=== PATIENT | male | born 1970 | race Two or more races ===

== ENCOUNTER 2023-04-16 23:37 | Emergency (ER) | payer MEDICAID ==
[2023-04-16 23:49] LABS: COVID AG,FIA SOURCE NASAL SWAB
[2023-04-17 00:10] LABS: SARS-COV2 (COVID) ANTIGEN,FIA Negative (Negative)
== END 2023-04-17 03:16 | disposition home or self-care (01) ==
LOC: EMS 23:38
DX: Z20.822 Contact with and (suspected) exposure to COVID-19 (principal)
CPT/HCPCS: 99283

== ENCOUNTER 2023-04-17 00:21 | Inpatient (IN) | payer MEDICAID ==
[~2023-04-17] VITALS: Ht 175.3 cm; Wt 73.5 kg
[2023-04-17] MEDS ORDERED: HALOPERIDOL 5 MG TABLET PO PRN (01:45)
[2023-04-17 03:44] VITALS: BP 137/71; PULSE 68; RESP 18; TEMP 97.7; O2SAT 100
[2023-04-17] MEDS ORDERED: NICOTINE 14 MG/24 HOUR PATCH TD PRN (06:45)
[2023-04-17] MEDS ORDERED: MAGNESIUM HYDROXIDE SUSPENSION 30 ML UDCUP PO PRN (06:45)
[2023-04-17] MEDS ORDERED: ONDANSETRON HCL 4 MG TABLET PO PRN (06:45)
[2023-04-17] MEDS ORDERED: LOPERAMIDE HCL 2 MG CAPSULE PO PRN (06:45)
[2023-04-17] MEDS ORDERED: GuaiFENesin/D-METHORPHAN [SUGAR-FREE] 200-20MG/10 ML SYRUP UDCUP PO PRN (06:45)
[2023-04-17] MEDS ORDERED: MAG HYDROX/AL HYDROX/SIMETH ES 30 ML SUSPENSION UDCUP PO PRN (06:45)
[2023-04-17] MEDS ORDERED: PETROLATUM,WHITE 28 GM JELLY TP PRN (06:45)
[2023-04-17] MEDS ORDERED: DOCUSATE SODIUM 100 MG CAPSULE PO PRN (06:45)
[2023-04-17] MEDS ORDERED: ACETAMINOPHEN 325 MG TABLET PO PRN (06:45)
[2023-04-17] MEDS ORDERED: CloNIDine HCL 0.1 MG TABLET PO PRN (06:45)
[2023-04-17] MEDS ORDERED: ALBUTEROL SULFATE HFA 90 MCG/PUFF 8 GM INHALER IH PRN (06:45)
[2023-04-17 08:27] VITALS: RESP 18
[2023-04-17 20:08] VITALS: BP 109/68; PULSE 66; RESP 18; TEMP 97.8; O2SAT 98
[2023-04-18 08:23] VITALS: BP 133/74; PULSE 60; RESP 17; TEMP 97.8; O2SAT 100
[2023-04-18 08:27] LABS: BASOPHILS % (AUTO) 1.1 % (0.0-2.0); EOSINOPHILS % (AUTO) 2.5 % (1.0-6.0); HEMATOCRIT 43.9 % (41-53); HEMOGLOBIN 14.9 g/dL (13.5-17.5); LYMPHOCYTES # (AUTO) 1.9 K/uL (1.0-4.8); LYMPHOCYTES % (AUTO) 29.5 % (22.0-44.0); MEAN CORPUSCULAR HEMOGLOBIN 31.3 pg (26.0-34.0); MEAN CORPUSCULAR HGB CONC 33.9 G/dL (31.0-37.0); MEAN CORPUSCULAR VOLUME 92 fL (80-100); MONOCYTES # (AUTO) 0.4 K/uL (0.1-1.0); MONOCYTES % (AUTO) 6.1 % (2.0-9.0); NEUTROPHILS # (AUTO) 3.8 K/uL (1.8-7.7); NEUTROPHILS % (AUTO) 60.8 % (40.0-70.0); PLATELET COUNT (AUTO) 254 K/uL (150-450); RED BLOOD CELL COUNT(AUTO) 4.76 MIL/uL (4.50-5.90); RED CELL DISTRIBUTION WIDTH 13.2 % (11.5-14.5); WHITE BLOOD COUNT (AUTO) 6.3 K/uL (4.5-11.0)
[2023-04-18 08:55] LABS: ALANINE AMINOTRANSFERASE 19 U/L (12-78); ALBUMIN 3.1 g/dL (3.4-5.0); ALKALINE PHOSPHATASE 88 U/L (46-116); ANION GAP 7 mmol/L (8-16); ASPARTATE AMINOTRANSFERASE 17 U/L (15-37); BILIRUBIN,TOTAL 0.5 mg/dL (0.1-1.0); CALCIUM, TOTAL 8.7 mg/dL (8.8-10.5); CARBON DIOXIDE 26 mmol/L (22-29); CHLORIDE 108 mmol/L (98-107); CHOL/HDL RATIO 2.8 (4.2-7.3); CHOLESTEROL 159 mg/dL (131-200); CREATININE 0.87 mg/dL (0.60-1.30); FREE T4 (FREE THYROXINE) 0.96 ng/dL (0.76-1.46); GLOMERULAR FILTR. RATE CALC > 60 mL/min (>60); GLUCOSE,RANDOM 87 mg/dL (70-110); HDL CHOLESTEROL 56 mg/dL (40-60); LDL CHOL (CALC.) 84 mg/dL (0-130); POTASSIUM 4.5 mmol/L (3.5-5.1); SODIUM SERUM 141 mmol/L (136-145); T4 (THYROXINE) 6.8 mcg/dL (4.7-13.3); THYROID STIMULATING HORMONE 0.36 uIU/mL (0.36-3.74); TOTAL PROTEIN, SERUM 6.5 g/dL (6.4-8.2); TRIGLYCERIDES 93 mg/dL (15-150); UREA NITROGEN, BLOOD 13 mg/dL (7-18)
[2023-04-18] MEDS: SERTRALINE HCL 50 MG TABLET PO SCH (09:53)
[2023-04-18 20:12] VITALS: BP 102/68; PULSE 80; RESP 18; TEMP 97.8; O2SAT 97
[2023-04-19 07:07] LABS: RPR QUANT. (TITER) Non Reactive titer (NonRea<1:1)
[2023-04-19] MEDS: SERTRALINE HCL 50 MG TABLET PO SCH (08:10)
[2023-04-19 08:35] VITALS: BP 116/72; PULSE 60; RESP 17; TEMP 97.5; O2SAT 100
[2023-04-19 10:07] LABS: TREPONEMA PALLIDUM AB -TPPA Non Reactive (Non Reactive)
[2023-04-19 20:04] VITALS: BP 121/78; PULSE 68; RESP 18; TEMP 98; O2SAT 99
[2023-04-20] MEDS: SERTRALINE HCL 50 MG TABLET PO SCH (08:08)
[2023-04-20 10:23] VITALS: BP 130/68; PULSE 62; RESP 20; TEMP 97.2; O2SAT 98
[2023-04-20 18:38] VITALS: RESP 18
[2023-04-20] MEDS: IBUPROFEN 400 MG TABLET PO PRN (18:39)
[2023-04-20 19:39] VITALS: RESP 18
[2023-04-20] MEDS: HydrOXYzine PAMOATE 25 MG CAPSULE PO PRN (20:01)
[2023-04-20] MEDS: TraZODone HCL 50 MG TABLET PO PRN (20:01)
[2023-04-20 20:08] VITALS: BP 120/60; PULSE 68; RESP 18; TEMP 97.6; O2SAT 96
[2023-04-21] MEDS: SERTRALINE HCL 50 MG TABLET PO SCH (08:15)
[2023-04-21 12:49] VITALS: BP 112/57; PULSE 68; RESP 18; TEMP 97.7; O2SAT 98
[2023-04-21 20:07] VITALS: BP 110/64; PULSE 66; RESP 18; TEMP 97.8; O2SAT 98
[2023-04-21] MEDS: HydrOXYzine PAMOATE 25 MG CAPSULE PO PRN (20:08)
[2023-04-21 22:22] VITALS: RESP 18
[2023-04-21] MEDS: IBUPROFEN 400 MG TABLET PO PRN (22:22)
[2023-04-21 23:21] VITALS: RESP 17
[2023-04-22] MEDS: SERTRALINE HCL 50 MG TABLET PO SCH (08:06)
[2023-04-22 08:35] VITALS: BP 123/66; PULSE 60; RESP 18; TEMP 97.8; O2SAT 98
[2023-04-22 20:13] VITALS: BP 128/70; PULSE 90; RESP 18; TEMP 97.8; O2SAT 97
[2023-04-23] MEDS: SERTRALINE HCL 50 MG TABLET PO SCH (08:04)
[2023-04-23 14:30] VITALS: BP 102/45; PULSE 50; RESP 17; TEMP 97.8; O2SAT 99
[2023-04-23] MEDS: HydrOXYzine PAMOATE 25 MG CAPSULE PO PRN (20:06)
[2023-04-23] MEDS: TraZODone HCL 50 MG TABLET PO PRN (21:07)
[2023-04-23 22:33] VITALS: RESP 18; TEMP 97.8
[2023-04-24] MEDS: SERTRALINE HCL 50 MG TABLET PO SCH (08:26)
[2023-04-24] MEDS ORDERED: MULTIVITAMINS, THERAPEUTIC TABLET PO SCH (09:00)
[2023-04-24 11:14] VITALS: BP 117/62; PULSE 77; RESP 18; TEMP 97.3; O2SAT 97
[2023-04-24] MEDS ORDERED: TRAZ-252 PO ×2 (12:33→12:35)
[2023-04-24] MEDS ORDERED: SERT-158 PO (12:33)
== END 2023-04-24 13:30 | disposition home or self-care (01) | DRG 750 ==
LOC: B3A 01:45
PROVIDERS: ADMIT Psychiatry & Neurology Child & Adolescent Psychiatry; ATTEND Psychiatry & Neurology Child & Adolescent Psychiatry
DX: F25.1 Schizoaffective disorder, depressive type (principal); F29 Unspecified psychosis not due to a substance or known physiological condition; F10.10 Alcohol abuse, uncomplicated; F19.10 Other psychoactive substance abuse, uncomplicated; G47.00 Insomnia, unspecified; R10.13 Epigastric pain
CPT/HCPCS: 80053; 80061; 83036; 84436; 84439; 84443; 85025; 86592; 86593; 86780